=== PATIENT | male | born 1935 | race African-American/Black ===

== ENCOUNTER 2016-05-02 13:20 | Emergency (ER) | payer MEDICARE ==
[~2016-05-02] VITALS: Ht 180.3 cm; Wt 108.9 kg
[2016-05-02 14:15] VITALS: BP 187/91
[2016-05-02] MEDS ORDERED: HYDROCODONE/APAP 5/325MG TABLET. PO ONE (14:30)
--- NOTE | 2016-05-02 14:57 | RAD ---
CT of the head without contrast, 05/02/2016: History: Dizziness, fell in shower Comparison is made to a study from 02/07/2015. There is mild cerebral atrophy. The ventricles are within normal limits in size. There is no shift of the midline structures. There is no evidence of acute intracranial hemorrhage or mass effect. There is a minimal unchanged deep white matter lucency in the right frontal region compatible with chronic ischemic change. No abnormal extra-axial fluid collection or mass is seen. IMPRESSION: 1. Chronic findings as described above. 2. No acute intracranial abnormality is detected. CT of the cervical spine without contrast, 05/02/2016: Noncontrast scans were obtained with multiplanar reconstructions produced. There is disc space narrowing and moderate marginal spurring throughout the mid and lower cervical spine. There is partial fusion across the C6-7 disc space. There are mild degenerative changes involving scattered facet joints bilaterally. There is mild associated narrowing of the central spinal canal at several levels. There is mild to moderate moderate foraminal encroachment at several levels, particularly on the left at C4-5 and C3-4. No acute fracture or dislocation is identified. IMPRESSION: 1. Moderate multilevel degenerative change. 2. No acute bony abnormality is detected. PQRS Compliance Statement: One or more of the following individualized dose reduction techniques were utilized for this examination: 1. Automated exposure control 2. Adjustment of the mA and/or kV according to patient size 3. Use of iterative reconstruction technique
--- NOTE | 2016-05-02 15:03 | RAD ---
Right elbow, 3 views, 05/02/2016: History: Injury No acute fracture or dislocation is identified. There is mild spurring at the elbow joint. There is no radiographic evidence of a joint effusion. Moderate subcutaneous edema is present posteriorly. IMPRESSION: 1. No acute bony abnormality is detected. 2. If elbow pain persists, radiographic follow-up in 7-10 days may be useful in including excluding an occult fracture.
[2016-05-02] MEDS ORDERED: HYDR-2666 PO (15:27)
--- NOTE | 2016-05-02 15:27 | PHYS DOC ---
Past Medical History Past Medical History: CAD, Cancer, COPD, High Cholesterol, Heart Disease, Hypertension, [place], Other Additional Past Medical Histor: TRISHA, PROSTATE CANCER, Gout Past Surgical History: No Surgical History Alcohol Use: None Drug Use: None Adult General Chief Complaint Chief Complaint: MECHANICAL FALL HPI HPI 80 yo m presenting to the ed with a mechanical fall without LOC while in shower. He has chronic dizzyiness and has seen a neurologist and had 2 MRIs without any etiology. he fell today and injured his neck and right elbow. His pain is sharp, moderate nonradiating and without alleviating factors. He denies any other injury. This occurred at about 0930. Review of Systems Review of Systems Neg for fevers chills nausea vomiting chills chest pain or soa. neg for abd pain. All other review of systems is negative unless otherwise noted in history of present illness. Current Medications Current Medications Current Medications Medications (Trade) Dose Ordered Sig/Maribel Start Time Stop Time Status Last Admin Dose Admin Acetaminophen/ Hydrocodone Bitart (Lortab 5/325) 2 tab 1X ONCE 05/02/16 14:30 05/02/16 14:31 DC 05/02/16 15:18 2 TAB Allergies Allergies Allergies Coded Allergies Type Severity Reaction Last Updated Verified No Known Drug Allergies 02/07/15 No Physical Exam Physical Exam Constitutional: Well developed, well nourished, no acute distress, non-toxic appearance. HENT: Normocephalic, no lacerations abrasions or ecchymosis or injury of the head or neck identified., bilateral external ears normal, oropharynx moist, no oral exudates, nose normal. [] Eyes: PERRLA, EOMI, conjunctiva normal, no discharge. Neck: Normal range of motion, no tenderness, supple, no stridor. [] Cardiovascular:Heart rate regular rhythm, no murmur [] Lungs & Thorax: Bilateral breath sounds clear to auscultation Abdomen: Bowel sounds normal, soft, no tenderness, no masses, no pulsatile masses. [] Skin: Warm, dry, no erythema, no rash. Back: No tenderness, no CVA tenderness. No tenderness of the cervical thoracic or lumbar spine. Mild pain with passive range of motion. no Step-offs. Extremities: No tenderness, no cyanosis, no clubbing, ROM intact, no edema. [] Neurologic: Alert and oriented X 3, normal motor function, normal sensory function, no focal deficits noted. Psychologic: Affect normal, judgement normal, mood normal. [] Current Patient Data Vital Signs Vital Signs Date Time Temp Pulse Resp B/P Pulse Ox O2 Delivery O2 Flow Rate FiO2 05/02/16 14:15 59 18 187/91 96 Room Air 05/02/16 13:40 97.8 97.8 EKG EKG [] Radiology/Procedures Radiology/Procedures [facility] [address] [place] [address] IMAGING REPORT Signed PATIENT: RADHA GOODE ACCOUNT: [id number] : 1935 LOCATION: ER AGE: 80 SEX: M EXAM STATUS: REG ER ORD. PHYSICIAN: GRETCHEN FERNANDES MD REASON: head trauma PROCEDURE: HEAD AND CERVICAL SPINE WO CT of the head without contrast, 05/02/2016: History: Dizziness, fell in shower Comparison is made to a study from 02/07/2015. There is mild cerebral atrophy. The ventricles are within normal limits in size. There is no shift of the midline structures. There is no evidence of acute intracranial hemorrhage or mass effect. There is a minimal unchanged deep white matter lucency in the right frontal region compatible with chronic ischemic change. No abnormal extra-axial fluid collection or mass is seen. IMPRESSION: 1. Chronic findings as described above. 2. No acute intracranial abnormality is detected. CT of the cervical spine without contrast, 05/02/2016: Noncontrast scans were obtained with multiplanar reconstructions produced. There is disc space narrowing and moderate marginal spurring throughout the mid and lower cervical spine. There is partial fusion across the C6-7 disc space. There are mild degenerative changes involving scattered facet joints bilaterally. There is mild associated narrowing of the central spinal canal at several levels. There is mild to moderate moderate foraminal encroachment at several levels, particularly on the left at C4-5 and C3-4. No acute fracture or dislocation is identified. IMPRESSION: 1. Moderate multilevel degenerative change. 2. No acute bony abnormality is detected. [facility] [address] [place] [address] IMAGING REPORT Signed PATIENT: RADHA GOODE ACCOUNT: [id number] : 1935 LOCATION: ER AGE: 80 SEX: M EXAM STATUS: REG ER ORD. PHYSICIAN: GRETCHEN FERNANDES MD REASON: swelling and pain after fall PROCEDURE: ELBOW RIGHT 3V Right elbow, 3 views, 05/02/2016: History: Injury No acute fracture or dislocation is identified. There is mild spurring at the elbow joint. There is no radiographic evidence of a joint effusion. Moderate subcutaneous edema is present posteriorly. IMPRESSION: 1. No acute bony abnormality is detected. 2. If elbow pain persists, radiographic follow-up in 7-10 days may be useful in including excluding an occult fracture. DICTATED and SIGNED BY: WAGNER CASANOVA MD DATE: 05/02/16 1456 CC: GRETCHEN FERNANDES MD; JESSICA ENGLE MD ~ [] Course & Med Decision Making Course & Med Decision Making Pertinent Labs and Imaging studies reviewed. (See chart for details) 80 yo male presents with mechanical fall. Patient had head neck pain along with right elbow pain. Patient's x-rays of the elbow were unremarkable. Head and neck CTs were negative for acute pathology. Patient was provided with oral pain medication here and subsequent discharged home to follow-up with his primary care physician over the next 3-5 days if his symptoms continued. Dragon Disclaimer Dragon Disclaimer This electronic medical record was generated, in whole or in part, using a voice recognition dictation system. Departure Departure Impression: Primary Impression: Head trauma Additional Impressions: Neck pain Fall Disposition: HOME, SELF-CARE Condition: STABLE Referrals: JESSICA ENGLE MD (PCP) Patient Instructions: Fall Prevention and Home Safety, Head Injury, Adult, Easy -to-Read Additional Instructions: Thank you for allowing us to participate in your care today. Followup with your primary care physician in 3 days if your symptoms do not improve. If you do not have a primary care provider you can ask for a list of our primary care providers. Return to the emergency department you have any new or concerning findings. This should be evaluated by the primary care physician and any necessary consulting services for continued management within a few days after discharge. Return to emergency room if you have any new or concerning symptoms including but not limited to fever, chills, nausea, vomiting, intractable pain, any new rashes, chest pain, shortness of air, uncontrolled bleeding, difficulty breathing, and/or vision loss. You may have been prescribed medication that can change in your level of thinking and ability to operate machinery. These medications include hydrocodone and Ativan. Also, Benadryl has been known to do this as well. Be sure to check with your pharmacist and ask if the medications you've prescribed can affect your level of consciousness. I recommend not operating heavy machinery or driving while on medication such as these. Scripts Hydrocodone Bit/Acetaminophen (Hydrocodone-Apap 5-325 )1 Each Tablet2 Tab PO PRN Q6HRS PRN PAIN #20 TAB Be careful as this medication may cause you to be drowsy or tired. Do not drive on this medication. Prov:GRETCHEN FERNANDES MD 05/02/16 Problem Qualifiers GRETCHEN FERNANDES MD May 02, 2016 15:27
== END 2016-05-02 15:55 | disposition home or self-care (01) ==
LOC: ER 13:20
DX: S09.90XA Unspecified injury of head, initial encounter (principal); M54.2 Cervicalgia; M25.521 Pain in right elbow; M10.9 Gout, unspecified; I25.10 Atherosclerotic heart disease of native coronary artery without angina pectoris; J44.9 Chronic obstructive pulmonary disease, unspecified; E78.00 Pure hypercholesterolemia, unspecified; I10 Essential (primary) hypertension; I25.2 Old myocardial infarction; I51.9 Heart disease, unspecified; G47.33 Obstructive sleep apnea (adult) (pediatric); W19.XXXA Unspecified fall, initial encounter; Y93.E1 Activity, personal bathing and showering; Y92.89 Other specified places as the place of occurrence of the external cause; Y99.8 Other external cause status
CPT/HCPCS: 70450; 72125; 73080; 99284-25

== ENCOUNTER 2016-12-21 06:36 | Emergency (ER) | payer BC ==
[~2016-12-21] VITALS: Ht 180.3 cm; Wt 106.1 kg
[~2016-12-21 06:36] MED LIST: HYDR-2758 PO
[2016-12-21 07:36] LABS: BASO % 1 % (0-3); EOS % 10 % (0-3); HEMATOCRIT 35.9 % (39.0-53.0); HEMOGLOBIN 11.7 g/dL (13.0-17.5); LYMPH % 26 % (24-48); MEAN CORPUSCULAR HEMOGLOBIN 29 pg (25-35); MEAN CORPUSCULAR HGB CONC 33 g/dL (31-37); MEAN CORPUSCULAR VOLUME 90 fL (79-100); MONO % 13 % (0-9); NEUT % 51 % (31-73); PLATELET COUNT 194 x10^3/uL (140-400); RED BLOOD COUNT 4.01 x10^6/uL (4.30-5.70); RED CELL DISTRIBUTION WIDTH 14.2 % (11.5-14.5); WHITE BLOOD COUNT 3.7 x10^3/uL (4.0-11.0)
[2016-12-21 07:42] LABS: CALCIUM 8.9 mg/dL (8.5-10.1); CREATININE 0.9 mg/dL (0.7-1.3); GFR 98.5; POTASSIUM 3.2 mmol/L (3.5-5.1)
--- NOTE | 2016-12-21 07:44 | PHYS DOC ---
Past Medical History Past Medical History: CAD, Cancer, COPD, High Cholesterol, Heart Disease, Hypertension, [place], Other Additional Past Medical Histor: TRISHA, PROSTATE CANCER, Gout, PNEUMONIA Past Surgical History: No Surgical History Alcohol Use: None Drug Use: None Adult General Chief Complaint Chief Complaint: Congestion HPI HPI Patient is a 81 year old male who presents with cough. The patient reports 3 day history of cough productive of white sputum which is worse at night. He has mild nasal congestion. Denies fevers/chills, chest pain, shortness of breath, lower extremity pain/swelling. He has taken antibiotics three times this year for pneumonia, most recently about 1 month ago, doesn't remember what antibiotic he took. He states he improved but now coughing again. Denies use of tobacco currently or in the past, denies history of asthma. PCP is Dr. Engle. Review of Systems Review of Systems Constitutional: Denies fever or chills Eyes: Denies change in visual acuity HENT: Reports nasal congestion, denies sore throat Respiratory: Reports cough, denies shortness of breath Cardiovascular: Denies chest pain or edema GI: Denies abdominal pain, nausea, vomiting, or diarrhea Musculoskeletal: Denies back pain or joint pain Integument: Denies rash Neurologic: Denies headache Current Medications Current Medications Current Medications Medications (Trade) Dose Ordered Sig/Maribel Start Time Stop Time Status Last Admin Dose Admin Albuterol/ Ipratropium (Duoneb) 3 ml 1X ONCE 12/21/16 07:45 12/21/16 07:46 DC 12/21/16 07:44 3 ML Potassium Chloride (Klor-Con) 40 meq 1X ONCE 12/21/16 09:00 12/21/16 09:01 DC 12/21/16 09:01 40 MEQ Allergies Allergies Allergies Coded Allergies Type Severity Reaction Last Updated Verified No Known Drug Allergies 02/07/15 No Physical Exam Physical Exam Constitutional: Well developed, well nourished, no acute distress, non-toxic appearance. HENT: Normocephalic, atraumatic, bilateral external ears normal, oropharynx moist, nose normal. Eyes: conjunctiva normal, no discharge. Neck: supple, no stridor. Cardiovascular: RRR, no murmurs, no edema. Lungs & Thorax: LCTAB, no wheezing, no respiratory distress. Abdomen: soft, nontender, nondistended. Skin: Warm, dry, no erythema, no rash. Back: No tenderness. Extremities: No tenderness, no edema. no calf tenderness or swelling. Neurologic: Alert and oriented X 3, no focal deficits noted. Psychologic: Affect normal, judgement normal, mood normal. Current Patient Data Vital Signs Vital Signs Date Time Temp Pulse Resp B/P (MAP) Pulse Ox O2 Delivery O2 Flow Rate FiO2 12/21/16 09:03 61 18 164/83 (110) 98 Room Air 12/21/16 06:36 97.5 97.5 Lab Values Laboratory Tests Test 12/21/16 07:25 White Blood Count 3.7 x10^3/uL (4.0-11.0) L Red Blood Count 4.01 x10^6/uL (4.30-5.70) L Hemoglobin 11.7 g/dL (13.0-17.5) L Hematocrit 35.9 % (39.0-53.0) L Mean Corpuscular Volume 90 fL (79-100) Mean Corpuscular Hemoglobin 29 pg (25-35) Mean Corpuscular Hemoglobin Concent 33 g/dL (31-37) Red Cell Distribution Width 14.2 % (11.5-14.5) Platelet Count 194 x10^3/uL (140-400) Neutrophils (%) (Auto) 51 % (31-73) Lymphocytes (%) (Auto) 26 % (24-48) Monocytes (%) (Auto) 13 % (0-9) H Eosinophils (%) (Auto) 10 % (0-3) H Basophils (%) (Auto) 1 % (0-3) Neutrophils # (Auto) 1.9 x10^3uL (1.8-7.7) Lymphocytes # (Auto) 1.0 x10^3/uL (1.0-4.8) Monocytes # (Auto) 0.5 x10^3/uL (0.0-1.1) Eosinophils # (Auto) 0.4 x10^3/uL (0.0-0.7) Basophils # (Auto) 0.0 x10^3/uL (0.0-0.2) Sodium Level 136 mmol/L (136-145) Potassium Level 3.2 mmol/L (3.5-5.1) L Chloride Level 98 mmol/L (98-107) Carbon Dioxide Level 31 mmol/L (21-32) Anion Gap 7 (6-14) Blood Urea Nitrogen 10 mg/dL (8-26) Creatinine 0.9 mg/dL (0.7-1.3) Estimated GFR (Cockcroft-Gault) 98.5 BUN/Creatinine Ratio 11 (6-20) Glucose Level 92 mg/dL (70-99) Calcium Level 8.9 mg/dL (8.5-10.1) Total Bilirubin 0.3 mg/dL (0.2-1.0) Aspartate Amino Transferase (AST) 13 U/L (15-37) L Alanine Aminotransferase (ALT) 14 U/L (16-63) L Alkaline Phosphatase 69 U/L (46-116) Total Protein 7.2 g/dL (6.4-8.2) Albumin 3.7 g/dL (3.4-5.0) Albumin/Globulin Ratio 1.1 (1.0-1.7) Laboratory Tests 12/21/16 07:25 Laboratory Tests 12/21/16 07:25 EKG EKG [] Radiology/Procedures Radiology/Procedures PROCEDURE: CHEST PA & LATERAL Two view chest History:Cough for one week, recent pneumonia. PA and lateral views of the chest are submitted. Comparison: 11/25/2016 Findings: There is no lobar infiltrate, pleural effusion, or pneumothorax. There is some mild linear opacity of the left lung base, present previously. The pericardial cardiac silhouette is stable, within normal limits. There is atherosclerotic calcification near aortic arch, somewhat tortuous thoracic aorta. Impression: There is mild linear atelectasis or fibrotic change left lung base, no lobar infiltrate. DICTATED and SIGNED BY: JONA KENNEY MD DATE: 12/21/16 0753 PROCEDURE: CT CHEST WO CONTRAST CT CHEST WO CONTRAST History:recurrent pneumonia, chronic left basilar changes on xray Technique: Noncontrast CT imaging was performed of the chest, multiplanar reconstruction images submitted. Exposure: One or more of the following individualized dose reduction techniques were utilized for this exam: 1. Automated exposure control.2. Adjustment of the mA and/or KV according to patient size.3. Use of iterative reconstruction technique. Comparison: None Findings:There is no pleural or pericardial effusion, pneumothorax, lobar infiltrate. There is bronchiectasis of the upper and lower lobes bilaterally, some density within right lower lobe bronchi. There is also mild lingular bronchiectasis with associated bronchial thickening and linear density likely due to mild fibrotic change. Central airways are patent. There is some coronary calcification. The ascending thoracic aorta is slightly ectatic up to 3.7 cm. There is no significant adenopathy of the chest. There is 3.2 cm hypodense lesion of the superior left kidney, another focus up to approximately 1 cm. Density measurements of larger focus are on the order of 28 Hounsfield units, greater than simple cyst. Density measurements of smaller focus are more suggestive of cyst at 19 Hounsfield units. There is multilevel thoracic spondylosis. Impression: 1.There is no lobar infiltrate. There is bronchiectasis of the upper and lower lobes, some density in right lower lobe bronchi which may be due to mucous plugging although cannot exclude underlying mass by this exam. There is also minimal lingular bronchiectasis and adjacent likely fibrotic change. 2. There is slightly ectatic ascending thoracic aorta up to 3.7 cm. 3. There are a couple of hypodense foci of the visualized superior left kidney, smaller focus which likely represents a cyst and larger focus probably a slightly complex cyst although nonemergent ultrasound evaluation may be beneficial given somewhat increased density characteristics. 4. There is coronary calcification. DICTATED and SIGNED BY: JONA KENNEY MD DATE: 12/21/16901[] Course & Med Decision Making Course & Med Decision Making Pertinent Labs and Imaging studies reviewed. (See chart for details) The patient presented with cough. Vitals stable, normal oxygen saturation, afebrile. Lungs clear. Given his history of recurrent infection ordered chest x- ray followed by a CT of the chest. There are abnormal findings but not requiring urgent intervention today. We'll give azithromycin for bronchitis, albuterol inhaler and Tessalon Perles for symptomatic relief. Recommend follow- up with primary care physician in 2-3 days if not improving. Will require additional follow-up evaluation for cystic lesions on the kidney and pulmonary findings. Return to the emergency department for severe shortness of breath or chest pain, any otherwise worsening condition. Discharged home in stable condition. [] Dragon Disclaimer Dragon Disclaimer This electronic medical record was generated, in whole or in part, using a voice recognition dictation system. Departure Departure Impression: Primary Impression: Bronchitis Disposition: HOME, SELF-CARE Condition: STABLE Referrals: JESSICA ENGLE MD (PCP) Patient Instructions: Bronchitis, [id number] Additional Instructions: You were seen in the emergency department today for cough. You had a CT which showed abnormality in the left lung, so we are recommending antibiotics. You also did have cysts on your kidney. Please follow up with your primary care doctor in 2-3 days for further evaluation & they can recommend next steps regarding follow up for imaging. You may need to see a machine sorter. Use inhaler & tessalon perles for cough. Come back for severe shortness of breath or chest pain, or any otherwise worsening condition. Scripts Azithromycin (AZITHROMYCIN TABLET) 250 Mg Tablet 1 PKG PO UD, #6 TAB Prov: LILY HERRERA MD 12/21/16 Benzonatate (TESSALON PERLE) 100 Mg Capsule 100 MG PO TID Y for COUGH, #10 CAP Prov: LILY HERRERA MD 12/21/16 Albuterol Sulfate (PROAIR HFA INHALER) 8.5 Gm Hfa.aer.ad 1 PUFF INH PRN Q6HRS Y for SHORTNESS OF BREATH, #1 INHALER 0 Refills Prov: LILY HERERRA MD 12/21/16 LILY HERRERA MD Dec 21, 2016 07:44
[2016-12-21] MEDS ORDERED: IPRATRPIUM/ALBUTEROL 0.5/2.5MG 3 ML NEBU. NEB ONE (07:45)
[2016-12-21 07:48] LABS: ALBUMIN 3.7 g/dL (3.4-5.0); ALBUMIN/GLOBULIN RATIO 1.1 (1.0-1.7); TOTAL BILIRUBIN 0.3 mg/dL (0.2-1.0); TOTAL PROTEIN 7.2 g/dL (6.4-8.2)
--- NOTE | 2016-12-21 07:57 | RAD ---
Two view chest History:Cough for one week, recent pneumonia. PA and lateral views of the chest are submitted. Comparison: 11/25/2016 Findings: There is no lobar infiltrate, pleural effusion, or pneumothorax. There is some mild linear opacity of the left lung base, present previously. The pericardial cardiac silhouette is stable, within normal limits. There is atherosclerotic calcification near aortic arch, somewhat tortuous thoracic aorta. Impression: There is mild linear atelectasis or fibrotic change left lung base, no lobar infiltrate.
[2016-12-21] MEDS ORDERED: POTASSIUM CHLORIDE 10MEQ 100 ML IV SCH (09:00)
[2016-12-21] MEDS ORDERED: POTASSIUM CHLORIDE 20 MEQ TABLET.ER. PO ONE (09:00)
[2016-12-21 09:03] VITALS: BP 164/83
--- NOTE | 2016-12-21 09:13 | RAD ---
CT CHEST WO CONTRAST History:recurrent pneumonia, chronic left basilar changes on xray Technique: Noncontrast CT imaging was performed of the chest, multiplanar reconstruction images submitted. Exposure: One or more of the following individualized dose reduction techniques were utilized for this exam: 1. Automated exposure control.2. Adjustment of the mA and/or KV according to patient size.3. Use of iterative reconstruction technique. Comparison: None Findings:There is no pleural or pericardial effusion, pneumothorax, lobar infiltrate. There is bronchiectasis of the upper and lower lobes bilaterally, some density within right lower lobe bronchi. There is also mild lingular bronchiectasis with associated bronchial thickening and linear density likely due to mild fibrotic change. Central airways are patent. There is some coronary calcification. The ascending thoracic aorta is slightly ectatic up to 3.7 cm. There is no significant adenopathy of the chest. There is 3.2 cm hypodense lesion of the superior left kidney, another focus up to approximately 1 cm. Density measurements of larger focus are on the order of 28 Hounsfield units, greater than simple cyst. Density measurements of smaller focus are more suggestive of cyst at 19 Hounsfield units. There is multilevel thoracic spondylosis. Impression: 1.There is no lobar infiltrate. There is bronchiectasis of the upper and lower lobes, some density in right lower lobe bronchi which may be due to mucous plugging although cannot exclude underlying mass by this exam. There is also minimal lingular bronchiectasis and adjacent likely fibrotic change. 2. There is slightly ectatic ascending thoracic aorta up to 3.7 cm. 3. There are a couple of hypodense foci of the visualized superior left kidney, smaller focus which likely represents a cyst and larger focus probably a slightly complex cyst although nonemergent ultrasound evaluation may be beneficial given somewhat increased density characteristics. 4. There is coronary calcification.
[2016-12-21] MEDS ORDERED: AZIT250T6 PO (09:45)
[2016-12-21] MEDS ORDERED: PROAIR HFA8.5 GM INH (09:45)
[2016-12-21] MEDS ORDERED: BENZ100C PO (09:45)
== END 2016-12-21 10:02 | disposition home or self-care (01) ==
LOC: ER 06:36
DX: J40 Bronchitis, not specified as acute or chronic (principal); J44.9 Chronic obstructive pulmonary disease, unspecified; E78.00 Pure hypercholesterolemia, unspecified; I11.9 Hypertensive heart disease without heart failure; I25.10 Atherosclerotic heart disease of native coronary artery without angina pectoris; M10.9 Gout, unspecified; G47.33 Obstructive sleep apnea (adult) (pediatric); I25.2 Old myocardial infarction; Z85.46 Personal history of malignant neoplasm of prostate
CPT/HCPCS: 36415; 71020; 71250; 80053; 85025; 94250; 94640; 99285; J7620

== ENCOUNTER → 2020-07-04 | Outpatient (CLI) | payer MEDICARE ==
[~2020-07-04] MED LIST changes: +ALBU2.5V8 INH; +ALLO300T PO; +ASPI325T11 PO; +AZIT250T6 PO; +BENZ100C PO; +ERGO500027 PO; -HYDR-2758 PO; +HYDR-2761 PO; +HYDR12.58 PO; +METO25TA4 PO; +NIFE60TA90 PO; +REGADENOSON 0.4 MG/5 ML DISP.SYRIN. IV ONE; +VALS160T3 PO
--- NOTE | 2020-07-04 17:37 | RAD ---
MR#: [id number] Date of Study: 07/04/2020 Ordering Physician: PRISCA WOLF, Referring Physician: YOHANA RODAS Tech: RT Olivia MelgarR) (N) APPROVED REPORT Test Type: Pharmacological Stress Nurse/Tech: Jacky He RN Test Indications: dyspnea on exertion Cardiac History: [place] with stents 2005, HTN Medications: See Electronic Medical Record Medical History: See Electronic Medical Record Resting ECG: SR Resting Heart Rate: 65 bpm Resting Blood Pressure: 160/68mmHg Pretest Chest Pain: None Nurse/Tech Notes lungs CTA, S1S2 Consent: The procedure was explained to the patient in lay terms. Informed consent was witnessed. Abhijeet eout was entered into [employer]. History and Stress Test performed by RT Ramón (R) (N) Pharm. Details Pharmacologic stress testing was performed using 0.4mg per 5ml of regadenoson given intravenously ove r 7-10 seconds. Stress Symptoms No chest pain or symptoms. POST EXERCISE Reason for Termination: Infusion complete Max HR: 99 bpm Max Blood Pressure: 163/85mmHg Blood Pressure response to exercise: Normal blood pressure response during stress. Heart Rate response to exercise: normal respoonse Chest Pain: No. Arrhythmia: No. INTERPRETATION Stress EKG Conclusion: The resting EKG shows a sinus rhythm with mild nonspecific ST-T wave changes. The stress EKG shows no significant changes from baseline. No EKG evidence of stress-induced ischemia. Imaging Protocol IMAGE PROTOCOL: Rest Tc-99m/stress Tc-99m 1 day Rest: Stress: Viability: Radiopharm.Tc99m BenhhdyrtXx39v Sestamibi Nkfq19tWu 32mCi Duration 15min. 10min. Img Date 07/04/2020 07/04/2020 Inj-Img Eaww86ume. 60min. Rest Admin Site:IV - Left AntecubitalAdministrator:RT Ramón (R)(N) Stress Admin Site: IV - Left AntecubitalAdministrator: JOSE Loya, ARRT (R)(N) STRESS DATA End Diast. Vol.81.0mlAv. Heart Rate69.0bpm End Syst. Vol.27.0mlCO Index BSA3.7L/min Myocardial Bwyg101.0gEject. Entkxguj01.0% Stress Rates Pk. Fill Rate2.83EDV/secLVtime Pk. Fill 251.12msec Pk. Empty Rate3.75ESV/secLVtime Pk. Bfuaf832.18msec 1/3 Pk. Fill0.84EDV/sec Stress Scores Regional WT0.00Summed WT4.00 Regional WM0.00Summed WM2.00 LV Perfusion The stress scans show no significant defects. The rest scans show no significant defects. Nuclear imaging shows no reversible ischemia or infarct. Wall Motion Left ventricular systolic function is normal with no regional wall motion abnormalities and an ejecti on fraction of greater than 70%. LV Perf. Quant 17 Seg. SSS0.00 17 Seg. SRS0.00 17 Seg. SDS0.00 Stress Defect Extent (% LAD)0.00Rest Defect Extent (% LAD)0.00Rev. Defect Extent (% LAD)0.00 Stress Defect Extent (% LCX) 0.00Rest Defect Extent (% LCX)0.00Rev. Defect Extent (% LCX)0.00 Stress Defect Extent (% RCA)0.00Rest Defect Extent (% RCA)0.00Rev. Defect Extent (% RCA)0.00 Stress Defect Extent (% PAULA)0.00Rest Defect Extent (% PAULA)0.00Rev. Defect Extent (% PAULA)0.00 Conclusion 1. No EKG evidence of stress-induced ischemia. 2. Nuclear imaging shows no reversible ischemia or infarct. 3. Normal left ventricular systolic function with an ejection fraction of greater than 70%. 4. Low risk Lexiscan nuclear stress test. Signed by : Prisca Wolf MD Electronically Approved : 07/04/2020 17:36:34
== END ==
LOC: NM 15:30
PROVIDERS: ATTEND Internal Medicine Cardiovascular Disease
DX: I10 Essential (primary) hypertension (principal); I25.2 Old myocardial infarction
CPT/HCPCS: 78452; 93017; A9500; J2785